=== PATIENT | female | born 1990 | race Caucasian/White ===

== ENCOUNTER 2017-12-02 15:00 | Emergency (ER) | payer OTHER ==
[~2017-12-02] VITALS: Ht 157.5 cm; Wt 86.2 kg
[2017-12-02 15:04] VITALS: Ht 157.5 cm; Wt 86.2 kg
[2017-12-02] MEDS ORDERED: IBUPROFEN 800 MG TAB PO STA (15:23)
--- NOTE | 2017-12-02 15:29 | EMERGENCY ROOM VISIT NOTE ---
ED Visit Note First contact with patient: 15:16 CHIEF COMPLAINT: Neck, bilateral shoulder, bilateral rib pain after fall from trampoline HISTORY OF PRESENT ILLNESS: This 27-year-old female patient presents to the emergency department, ambulatory, complaining of pain in the neck, bilateral shoulders, and bilateral lateral ribs after fall from a trampoline last night. The patient states approximately 10:00 last evening, she was jumping on a trampoline. She attempted to do a slip, when the [place] popped and she fell through. She states she fell with her feet down, and caught herself with her arms over the metal bar. She reports bilateral lateral rib pain which is causing some difficulty breathing, neck pain in the cervical spine which is causing difficulty with turning her neck, as well as bilateral shoulder pain radiating into the neck. The patient is having difficulty lifting objects due to the pain in her shoulder and neck. She has been using ice and Tylenol without relief of her symptoms. She has not taken any anti-inflammatories. She denies any numbness or tingling or weakness. She did not hit her head. She states she is having difficulty with lifting the arms. The patient works in [employer] at the [employer], and is concerned she may not be able to work tomorrow. She denies any previous injury in any of the areas. The patient rates the pain as sharp and 9/10. The patient denies chest pain or shortness of breath. There was no loss of consciousness. The patient denies headache, blurred vision, abdominal pain, nausea, or vomiting. The patient denies change in personality. REVIEW OF SYSTEMS: A 10 system review of systems was completed with positives and pertinent negatives listed in the HPI. ALLERGIES: None MEDICATIONS: None PMH: None SOCIAL HISTORY: The patient lives locally with family. She denies drug use. She admits to occasional alcohol and smokes one half pack of cigarettes per day. PHYSICAL EXAM: VITALS: Vitals are noted on the nurse's note and reviewed by myself. Vital signs stable. The patient was placed in a cervical collar by nursing staff. GENERAL: This is a 27-year-old white female, in no acute distress, nondiaphoretic, well-developed well-nourished. SKIN: Capillary reflex less than 2 seconds. HEENT: Normocephalic. PERRLA. EOMI. Nares patent. Mucous membranes moist. Neck is supple without nuchal rigidity. Cervical spine is tender to palpation. The patient does have tenderness of the paraspinal muscles bilaterally. There is no lymphadenopathy. MUSCULOSKELETAL: The patient has limited range of motion of the bilateral arms. Strength 5/5 of the bilateral upper extremities. The patient has tenderness with any attempts to move of the neck. There is tenderness of the bilateral shoulders on palpation. There is also tenderness of the bilateral lateral ribs. There is no difficulty breathing, but the patient does report increased pain with palpation and deep breathing. NEURO: Patient was alert and oriented to person place and time. Normal sensation to light and sharp touch. No focal neurologic deficits. RADIOLOGY: C-SPINE CROSS TABLE 1 VIEW HISTORY: Pain. Trauma. C COLLAR CLEARANCE COMPARISON: None. Findings: Negative lateral projection of the cervical spine. Vertebral body stature is unremarkable. Prevertebral soft tissues are unremarkable. Posterior limits. Be intact. IMPRESSION: Negative lateral projection the cervical spine. The above report was generated using voice recognition software. It may contain grammatical, syntax or spelling errors. Electronically signed by: Tremayne Jerez M.D. 12/02/2017 3:51 PM Dictated Date/Time: 12/02/2017 3:51 PM [~ rep ct add3]] CERVICAL SPINE 2 OR 3 VIEWS HISTORY: Trauma. Pain. neck pain s/p fall COMPARISON: None. FINDINGS: The cervical spine is visualized from C1 through the superior endplate of T1. There is no fracture. No subluxation. Disc spaces are preserved. Prevertebral soft tissues and the atlantodens interval are intact. IMPRESSION: No fracture or subluxation within the cervical spine. The above report was generated using voice recognition software. It may contain grammatical, syntax or spelling errors. Electronically signed by: Tremayne Jerez M.D. 12/02/2017 4:08 PM Dictated Date/Time: 12/02/2017 4:08 PM RIBS BILATERAL WITH PA CHEST HISTORY: 27 years-old Female teresa lateral rib pain s/p fall acute bilateral rib pain status post fall COMPARISON: None available TECHNIQUE: PA view of the chest with 2 views of the bilateral ribs FINDINGS: Cardiomediastinal and hilar silhouettes are within normal limits. There is no pneumothorax, pleural effusion, focal airspace consolidation or overt pulmonary edema. Bones of the chest appear grossly intact. No acute displaced rib fracture identified. IMPRESSION: 1. No acute process of the chest. 2. No acute rib fracture identified. The above report was generated using voice recognition software. It may contain grammatical, syntax or spelling errors. Electronically signed by: Rashel Fragoso M.D. 12/02/2017 4:19 PM Dictated Date/Time: 12/02/2017 4:17 PM R SHOULDER MIN 2 VIEWS ROUTINE CLINICAL HISTORY: right shoulder pain s/p fall trauma. Pain. COMPARISON: None. DISCUSSION: The bones and joint spaces appear intact. There is no evidence of fracture, dislocation or bony disease. There is no evidence for soft tissue swelling. IMPRESSION: Negative study. The above report was generated using voice recognition software. It may contain grammatical, syntax or spelling errors. Electronically signed by: Tremayne Jerez M.D. 12/02/2017 4:06 PM Dictated Date/Time: 12/02/2017 4:06 PM L SHOULDER MIN 2 VIEWS ROUTINE CLINICAL HISTORY: left shoulder pain s/p fall trauma. Pain. COMPARISON: None. DISCUSSION: The bones and joint spaces appear intact. There is no evidence of fracture, dislocation or bony disease. There is no evidence for soft tissue swelling. IMPRESSION: Negative study. The above report was generated using voice recognition software. It may contain grammatical, syntax or spelling errors. Electronically signed by: Tremayne Jerez M.D. 12/02/2017 4:08 PM Dictated Date/Time: 12/02/2017 4:08 PM EMERGENCY DEPARTMENT COURSE: I examined the patient. She is given 800 mg ibuprofen. X-rays performed and reviewed by myself and radiologist as above. I did receive a phone call after the lateral C-spine film, and the radiologist had reviewed this as no acute fracture. I did give the okay for the school bus technician to remove the cervical collar. The patient was reassessed and is feeling much better. I discussed the findings of x-rays with the patient at bedside. I recommended anti-inflammatories and muscle relaxers. The patient requested a note for work, and was given this. Discharge instructions reviewed, the patient was discharged home in good condition. I attest that I have personally reviewed the patient's current medication list. Patient was found to have normal blood pressure on screening and does not require follow-up. Etiologies such as soft tissue injury, fracture, dislocation, neurovascular compromise, compartment syndrome, as well as others were entertained. DIAGNOSIS: Neck pain, bilateral contusion of ribs, bilateral shoulder pain, fall involving trampoline The chart was completed utilizing [employer] voice recognition software. Grammatical errors, random word insertions, pronoun errors, and incomplete sentences are an occasional consequence of this system due to software limitations, ambient noise, and hardware issues. Any formal questions or concerns about the content, text, or information contained within the body of this dictation should be directly addressed to the provider for clarification. Current/Historical Medications Scheduled PRN Cyclobenzaprine Hcl (Flexeril), 5-10 MG PO TID PRN for Muscle Spasms Vital Signs Date Time Temp Pulse Resp B/P (MAP) Pulse Ox O2 Delivery O2 Flow Rate FiO2 12/02/17 16:47 36.8 81 20 113/77 96 12/02/17 16:30 81 20 113/77 96 Room Air 12/02/17 15:04 36.8 82 20 116/78 96 Room Air Medications Administered Medications (Trade) Dose Ordered Sig/Char Route Start Time Stop Time Status Last Admin Dose Admin Ibuprofen (Motrin Tab) 800 mg NOW STAT PO 12/02/17 15:23 12/02/17 15:26 DC 12/02/17 15:31 800 MG Departure Information Impression Primary Impression: Neck pain Additional Impressions: Bilateral contusion of ribs Bilateral shoulder pain Fall involving trampoline as cause of accidental injury Dispostion Home / Self-Care Condition GOOD Prescriptions Cyclobenzaprine Hcl (FLEXERIL) 5 Mg Tab 5-10 MG PO TID Y for Muscle Spasms, #15 TAB PRN Prov: Tiffanie Olivera PA-C 12/02/17 Referrals No Doctor, Assigned (PCP) Patient Instructions ED Contusion Rib, ED Contusion Shoulder, ED Neck Back Pain General, My [facility] Additional Instructions You have been treated in the Emergency Department for Rib, neck, and shoulder pain. All x-rays were negative for acute fracture. I suspect contusions and muscle spasms related to the fall. You have been prescribed Flexeril (cyclobenzaprine) 1-2 tabs orally, three times per day. Do NOT exceed 30 mg (6 tabs) per day. Take your first dose at bedtime as it can make you drowsy. Always take all medications as prescribed. For pain control, you can use the following [id number] medicines (if >12 yo): Ibuprofen(Motrin, Advil) may be used for fever or pain. Use 600mg every six hours as needed. Take with food. Avoid using more than 2400mg in a 24 hour period. Do not use 2400mg per day for more than three consecutive days without physician direction. Prolonged inappropriate use can lead to stomach upset or ulcers. (AND/OR) Acetaminophen(Tylenol) may be used for fever or pain. Use 1000mg every six hours as needed. Avoid using more than 3000mg in a 24 hour period. If this is an acute injury, ice can be applied to the area of pain for the first 3 days to help decrease pain and inflammation. After the first 3 days, a heating pad can be used over the area for continued soothing relief. You should schedule a follow-up appointment in 2-3 days with your Primary Care Provider for further evaluation and treatment of your injuries. Hugging a pillow while coughing or sneezing can help to reduce your pain. Be sure to continue taking occasional deep breaths to help expand your lungs to reduce the risk of developing pneumonia. Return to the Emergency Department if your current symptoms worsen despite treatment course outlined above, or if you develop any of the following symptoms : intractable pain despite aforementioned treatment course, loss of control of your bowel or bladder, numbness or tingling in your groin, or development of a fever. Problem Qualifiers Additional Impressions: Bilateral shoulder pain Chronicity: acute Qualified Codes: M25.511 - Pain in right shoulder; M25.512 - Pain in left shoulder
--- NOTE | 2017-12-02 15:53 | DIAGNOSTIC IMAGING REPORT ---
C-SPINE CROSS TABLE 1 VIEW HISTORY: Pain. Trauma. C COLLAR CLEARANCE COMPARISON: None. Findings: Negative lateral projection of the cervical spine. Vertebral body stature is unremarkable. Prevertebral soft tissues are unremarkable. Posterior limits. Be intact. IMPRESSION: Negative lateral projection the cervical spine. The above report was generated using voice recognition software. It may contain grammatical, syntax or spelling errors. Electronically signed by: Tremayne Jerez M.D. 12/02/2017 3:51 PM Dictated Date/Time: 12/02/2017 3:51 PM
--- NOTE | 2017-12-02 16:07 | DIAGNOSTIC IMAGING REPORT ---
R SHOULDER MIN 2 VIEWS ROUTINE CLINICAL HISTORY: right shoulder pain s/p fall trauma. Pain. COMPARISON: None. DISCUSSION: The bones and joint spaces appear intact. There is no evidence of fracture, dislocation or bony disease. There is no evidence for soft tissue swelling. IMPRESSION: Negative study. The above report was generated using voice recognition software. It may contain grammatical, syntax or spelling errors. Electronically signed by: Tremayne Jerez M.D. 12/02/2017 4:06 PM Dictated Date/Time: 12/02/2017 4:06 PM
--- NOTE | 2017-12-02 16:09 | DIAGNOSTIC IMAGING REPORT ---
L SHOULDER MIN 2 VIEWS ROUTINE CLINICAL HISTORY: left shoulder pain s/p fall trauma. Pain. COMPARISON: None. DISCUSSION: The bones and joint spaces appear intact. There is no evidence of fracture, dislocation or bony disease. There is no evidence for soft tissue swelling. IMPRESSION: Negative study. The above report was generated using voice recognition software. It may contain grammatical, syntax or spelling errors. Electronically signed by: Tremayne Jerez M.D. 12/02/2017 4:08 PM Dictated Date/Time: 12/02/2017 4:08 PM
--- NOTE | 2017-12-02 16:10 | DIAGNOSTIC IMAGING REPORT ---
CERVICAL SPINE 2 OR 3 VIEWS HISTORY: Trauma. Pain. neck pain s/p fall COMPARISON: None. FINDINGS: The cervical spine is visualized from C1 through the superior endplate of T1. There is no fracture. No subluxation. Disc spaces are preserved. Prevertebral soft tissues and the atlantodens interval are intact. IMPRESSION: No fracture or subluxation within the cervical spine. The above report was generated using voice recognition software. It may contain grammatical, syntax or spelling errors. Electronically signed by: Tremayne Jerez M.D. 12/02/2017 4:08 PM Dictated Date/Time: 12/02/2017 4:08 PM
--- NOTE | 2017-12-02 16:20 | DIAGNOSTIC IMAGING REPORT ---
RIBS BILATERAL WITH PA CHEST HISTORY: 27 years-old Female teresa lateral rib pain s/p fall acute bilateral rib pain status post fall COMPARISON: None available TECHNIQUE: PA view of the chest with 2 views of the bilateral ribs FINDINGS: Cardiomediastinal and hilar silhouettes are within normal limits. There is no pneumothorax, pleural effusion, focal airspace consolidation or overt pulmonary edema. Bones of the chest appear grossly intact. No acute displaced rib fracture identified. IMPRESSION: 1. No acute process of the chest. 2. No acute rib fracture identified. The above report was generated using voice recognition software. It may contain grammatical, syntax or spelling errors. Electronically signed by: Rashel Fragoso M.D. 12/02/2017 4:19 PM Dictated Date/Time: 12/02/2017 4:17 PM
[2017-12-02] MEDS ORDERED: CYCL5TAB PO (16:29)
[2017-12-02 16:47] VITALS: BP 113/77; PULSE 81; TEMP 36.8; O2SAT 96
== END 2017-12-02 16:48 | disposition home or self-care (01) ==
LOC: C.EDB 15:01 → C.EDD 16:48
DX: M54.2 Cervicalgia (principal); S20.211A Contusion of right front wall of thorax, initial encounter; S20.212A Contusion of left front wall of thorax, initial encounter; M25.511 Pain in right shoulder; M25.512 Pain in left shoulder; W17.89XA Other fall from one level to another, initial encounter; Y93.44 Activity, trampolining; Y99.8 Other external cause status; F17.210 Nicotine dependence, cigarettes, uncomplicated

== ENCOUNTER → 2018-03-18 | Outpatient (CLI) | payer OTHER ==
[~2018-03-18] MED LIST: DIPH50CA56 PO; OXYC-737 PO; PRENTAB26 PO; PYRI100T4 PO
== END | disposition home or self-care (01) ==
LOC: C.LAB1850 15:22
PROVIDERS: ATTEND Obstetrics & Gynecology
DX: Z34.92 Encounter for supervision of normal pregnancy, unspecified, second trimester (principal)

== ENCOUNTER 2021-01-27 13:13 | Observation (INO) ==
[2021-01-27 14:03] LABS: Basophils # (auto) 0.02 K/uL (0-0.2); Basophils % (auto) 0.2 %; Hematocrit (blood only) 42.5 % (37-47); Immature Granulocytes # (auto) 0.01 K/uL (0.00-0.02); Immature Granulocytes % (auto) 0.1 %; Lymphocytes # (auto) 2.79 K/uL (1.2-3.4); Lymphocytes % (auto) 27.8 %; Mean Corpuscular Hemoglobin 30.6 pg (25-34); Mean Corpuscular Hgb Conc 32.9 g/dL (32-36); Mean Corpuscular Volume 92.8 fL (80-100); Monocytes # (auto) 0.75 K/uL (0.11-0.59); Monocytes % (auto) 7.5 %; Neutrophils # (auto) 6.45 K/uL (1.4-6.5); Neutrophils % (auto) 64.4 %; Platelet Count 207 K/uL (130-400); RDW Coefficient of Variation 13.4 % (11.5-14.5); RDW Standard Deviation 45.6 fL (36.4-46.3); Red Blood Count 4.58 M/uL (4.2-5.4); White Blood Count 10.02 K/uL (4.8-10.8)
[2021-01-27 14:21] LABS: Albumin Level 3.1 gm/dl (3.4-5.0); Calcium 8.7 mg/dl (8.5-10.1); Creatinine Clr Calc Pharmacy 120.7 ml/min; Est GFR (African American) 123.7 ml/min; Est GFR (Non-African American) 106.8 ml/min; Potassium 4.2 mmol/L (3.5-5.1)
[2021-01-27 14:24] LABS: Albumin Globulin Ratio 0.8 (0.9-2); Bilirubin,Total 0.3 mg/dl (0.2-1); Globulin 3.9 gm/dl (2.5-4.0)
--- NOTE | 2021-01-27 14:56 | Ultrasound Report ---
US breast RT limited CLINICAL HISTORY: right breast redness/swelling, recurrent abscesses COMPARISON STUDY: No previous studies for comparison. FINDINGS: Right breast ultrasonography was performed. There is a complex avascular fluid collection s een beneath the nipple measuring 29 x 29 x 36 mm. There is overlying periareolar erythema. The findin gs are consistent with an abscess. IMPRESSION: Mildly complex subareolar fluid collection measuring 3.6 x 2.9 x 2.9 cm. The findings ar e consistent with an abscess. ACT 112: Negative or not required by law. Electronically signed by: Britton Gómez M.D. 01/27/2021 2:55 PM
[2021-01-27] MEDS ORDERED: cefTRIAXone SODIUM 2,000 MG/70 ML BAG IV STA (15:11)
[2021-01-27] MEDS ORDERED: ONDANSETRON INJ 2 MG/ML 2 ML VIAL IV STA (15:17)
[2021-01-27] MEDS ORDERED: MoRPHine SULFATE 10 MG/ML CARP/VIAL IV STA (15:17)
--- NOTE | 2021-01-27 15:17 | Emergency Department Note ---
History of Present Illness General Chief complaint: Breast Pain/Problems Stated complaint: RIGHT BREAST PAIN/RED NOT SWELLED LUMP Time Seen by Provider: 01/27/21 13:30 Source: patient Mode of arrival: ambulatory Limitations: no limitations History of Present Illness Maximum Pain Intensity: 10 This patient is a 30-year-old female who presents to the emergency department for evaluation of right breast pain. She states she has had issues on and off with breast abscesses for the past 2 years. [place] [facility] [place] with Dr. Richardson at [facility]. She has had worsening redness/swelling of the right breast over the past 4 to 5 days. She did start taking dicloxacillin but has not noticed any improvement with this. She denies any fever/chills, nausea or other systemic symptoms. Home Medications Medication Instructions Recorded Confirmed Type divalproex [Depakote] 1,000 mg PO HS 01/27/21 01/27/21 History folic acid 400 mcg PO QAM 01/27/21 01/27/21 History gabapentin [Neurontin] 300 mg PO TID 01/27/21 01/27/21 History phentermine 30 mg PO QAM 01/27/21 01/27/21 History venlafaxine [Effexor XR] 150 mg PO HS 01/27/21 01/27/21 History oxycodone-acetaminophen [Percocet] 1 tab PO Q6H PRN #14 tab 01/28/21 Rx sulfamethoxazole-trimethoprim 1 tab PO DAILY 14 Days #14 tab 01/28/21 Rx [Bactrim DS] Allergies Allergy/AdvReac Type Severity Reaction Status Date / Time No Known Allergies Allergy Unverified 01/27/21 14:13 Past Med/Surg History Medical History No significant past medical history Social History Smoking Status: Current every day smoker Do You Dip or Chew Tobacco: No; Tobacco Cessation Education Requested by Patient: No Hx Alcohol Use: Yes Alcohol type: beer Hx Substance Use: No Preferred Language: Serbian Communication Ability: Effective Dental Associate Required: No Beliefs That Will Affect Care: None Current Living Situation: Significant Other Other Information That Helps Us Care for You: No Feels Safe at Home: Yes Safety Concerns: Feels Safe At This Time Assistive Devices: None Review of Systems A total of 10 systems reviewed and were otherwise negative Physical Exam Vital Signs Vital Signs - 24 hr 01/27/21 13:15 01/27/21 15:00 Temperature 36.6 C Temperature Source Temporal Artery Scan Pulse Rate 92 H Pulse Rate [Left Finger] 68 Respiratory Rate 18 20 Respiratory Effort / Characteristics Non-Labored Respiratory Depth Normal Blood Pressure 110/74 Blood Pressure [Left Arm] 123/82 Blood Pressure Mean 86 Blood Pressure Mean [Left Arm] 95 Blood Pressure Position [Left Arm] Lying Pulse Oximetry 97 97 Oxygen Delivery Method Room Air Room Air Sepsis Recent Fever Within 48 Hours No Sepsis New/Unexplained Change in Mental Status N/A Sepsis Action Taken by Nursing No Action Required VITALS: Vitals are noted on the nurse's note and reviewed by myself. Vital signs stable. GENERAL: This is a 30-year-old female, in no acute distress, well-developed well-nourished. EYES: Pupils equal round and reactive to light and accommodation. MOUTH: Mucous membranes moist. NECK: Supple without nuchal rigidity. HEART: Regular rate and rhythm without murmurs gallops or rubs. LUNGS: Clear to auscultation bilaterally without wheezes, rales or rhonchi. BREAST: There is erythema surrounding the right areola with underlying induration and fluctuance. NEURO: Patient was alert and oriented to person place and time. Course Consultations Consultation #1: Dr. Churchill - general surgery Administered Medications Discontinued Medications Bacitracin (Bacitracin Oint 15 Gm Tube) Confirm Administered Dose 45 appln .ROUTE .STK-MED ONE Stop: 01/27/21 17:07 Last Admin: 01/27/21 17:56 Dose: 25 appln Documented by: [id number] Bupivacaine HCl (Bupivacaine 0.5 % 5 Mg/1 Ml Mpf 30ml Vial) Confirm Administered Dose 30 ml .ROUTE .STK-MED ONE Stop: 01/27/21 17:07 Last Admin: 01/27/21 17:56 Dose: 12 ml Documented by: [id number] Divalproex Sodium (Divalproex Delay Release 500 Mg Tab) 1,000 mg PO HS PENDING SALE TO [facility] Stop: 02/26/21 20:59 Last Admin: 01/27/21 21:05 Dose: 1,000 mg Documented by: [id number] Folic Acid (Folic Acid 400 Mcg Tab) 400 mcg PO QAM LATESHA Stop: 02/27/21 08:59 Last Admin: 01/28/21 08:33 Dose: 400 mcg Documented by: [id number] Gabapentin (Gabapentin 300 Mg Cap) 300 mg PO TID LATESHA Stop: 02/26/21 20:59 Last Admin: 01/28/21 08:33 Dose: 300 mg Documented by: [id number] Admin: 01/27/21 21:05 Dose: 300 mg Documented by: [id number] Hydromorphone HCl (Hydromorphone Inj 1 Mg/Ml Syringe) 1 mg IV Q3H PRN PRN Reason: Pain Stop: 02/10/21 19:25 Last Admin: 01/28/21 08:32 Dose: 1 mg Documented by: [id number] Admin: 01/28/21 01:35 Dose: 1 mg Documented by: [id number] Admin: 01/27/21 19:40 Dose: 1 mg Documented by: [id number] Ceftriaxone Sodium (Rocephin) 2,000 mg in 70 mls @ 140 mls/hr IV NOW STA Stop: 01/27/21 15:40 Last Infusion: 01/27/21 16:21 Dose: 0 mls/hr Documented by: [id number] Admin: 01/27/21 15:45 Dose: 140 mls/hr Documented by: [id number] Lactated Ringer's (Lr) 1,000 mls @ 80 mls/hr IV .[id number] LATESHA Stop: 02/26/21 19:25 Last Infusion: 01/28/21 09:32 Dose: 80 mls/hr Documented by: [id number] Infusion: 01/28/21 08:32 Dose: 0 mls/hr Documented by: [id number] Infusion: 01/27/21 21:10 Dose: 80 mls/hr Documented by: [id number] Infusion: 01/27/21 20:24 Dose: 0 mls/hr Documented by: [id number] Admin: 01/27/21 19:40 Dose: 80 mls/hr Documented by: [id number] Ampicillin Sodium/Sulbactam Sodium 3,000 mg/ Sodium Chloride 108 mls @ 200 mls /hr IV Q6H LATESHA; Protocol Stop: 02/06/21 19:59 Last Infusion: 01/28/21 09:05 Dose: 0 mls/hr Documented by: [id number] Admin: 01/28/21 08:32 Dose: 200 mls/hr Documented by: [id number] Infusion: 01/28/21 02:04 Dose: 0 mls/hr Documented by: [id number] Admin: 01/28/21 01:28 Dose: 200 mls/hr Documented by: [id number] Infusion: 01/27/21 21:02 Dose: 0 mls/hr Documented by: [id number] Admin: 01/27/21 20:24 Dose: 200 mls/hr Documented by: [id number] Lidocaine HCl (Lidocaine Hcl 1% 20 Ml Vial) Confirm Administered Dose 20 ml .ROUTE .STK-MED ONE Stop: 01/27/21 17:07 Last Admin: 01/27/21 17:57 Dose: 12 ml Documented by: [id number] Menthol (Cough Drop (Sugar Free) Gricelda 24 Gricelda/1 Box) Confirm Administered Dose 24 gricelda BUCCAL .STK-MED ONE Stop: 01/28/21 01:33 Last Admin: 01/28/21 01:34 Dose: 24 gricelda Documented by: [id number] Morphine Sulfate (Morphine Sulfate 10 Mg/Ml Carp/Vial) 6 mg IV NOW STA Stop: 01/27/21 15:18 Last Admin: 01/27/21 16:02 Dose: 6 mg Documented by: [id number] Ondansetron HCl (Ondansetron Inj 2 Mg/Ml 2 Ml Vial) 4 mg IV NOW STA Stop: 01/27/21 15:18 Last Admin: 01/27/21 16:02 Dose: 4 mg Documented by: [id number] Oxycodone/Acetaminophen (Oxycodone/Acetaminophen 5mg/325mg Tab) 1 tab PO Q4H PRN PRN Reason: Pain Stop: 02/10/21 19:25 Last Admin: 01/28/21 05:33 Dose: 1 tab Documented by: [id number] Admin: 01/28/21 01:28 Dose: 1 tab Documented by: [id number] Admin: 01/27/21 21:08 Dose: 1 tab Documented by: [id number] Venlafaxine HCl (Venlafaxine Hcl Xr 150 Mg Capxr) 150 mg PO HS LATESHA Stop: 02/26/21 20:59 Last Admin: 01/27/21 21:05 Dose: 150 mg Documented by: [id number] Medical Decision Making Differential Diagnosis Differential diagnosis includes abscess, cellulitis, mass/malignancy, among others. Home Medications Current Medication List: was personally reviewed by me Laboratory Data Attestation: I reviewed the patient's lab results. Result diagrams: 01/28/21 05:18 01/27/21 13:55 Lab Results 01/27/21 01/27/21 01/27/21 Range/Units 13:55 13:55 15:38 WBC 10.02 (4.8-10.8) K/uL RBC 4.58 (4.2-5.4) M/uL Hgb 14.0 (12.0-16.0) g/dL Hct 42.5 (37-47) % MCV 92.8 (80-100) fL MCH 30.6 (25-34) pg MCHC 32.9 (32-36) g/dL RDW Std Deviation 45.6 (36.4-46.3) fL RDW Coeff of Edith 13.4 (11.5-14.5) % Plt Count 207 (130-400) K/uL MPV 11.0 H (7.4-10.4) fL Immature Gran % (Auto) 0.1 % Neut % (Auto) 64.4 % Lymph % (Auto) 27.8 % [place] % (Auto) 7.5 % Eos % (Auto) 0.0 % Baso % (Auto) 0.2 % Neut # (Auto) 6.45 (1.4-6.5) K/uL Lymph # (Auto) 2.79 (1.2-3.4) K/uL [place] # (Auto) 0.75 H (0.11-0.59) K/uL Eos # (Auto) 0.00 (0-0.5) K/uL Baso # (Auto) 0.02 (0-0.2) K/uL Immature Gran # (Auto) 0.01 (0.00-0.02) K/uL Sodium 140 (136-145) mmol/L Potassium 4.2 (3.5-5.1) mmol/L Chloride 110 H (98-107) mmol/L Carbon Dioxide 27 (21-32) mmol/L Anion Gap 3.0 (3-11) BUN 8 (7-18) mg/dl Creatinine 0.76 (0.6-1.2) mg/dl Est Cr Clr Drug Dosing 120.7 ml/min Est GFR ( Amer) 123.7 ml/min Est GFR (Non-Af Amer) 106.8 ml/min BUN/Creatinine Ratio 11.0 (10-20) Glucose 81 (70-99) mg/dl Calcium 8.7 (8.5-10.1) mg/dl Total Bilirubin 0.3 (0.2-1) mg/dl AST 8 L (15-37) U/L ALT 15 (12-78) U/L Alkaline Phosphatase 90 (45-117) U/L Total Protein 7.0 (6.4-8.2) gm/dl Albumin 3.1 L (3.4-5.0) gm/dl Globulin 3.9 (2.5-4.0) gm/dl Albumin/Globulin Ratio 0.8 L (0.9-2) COVID-19 Eval Order Covid19 at [facility] SARS-CoV-2 (PCR) (Negative) 01/27/21 Range/Units 15:38 WBC (4.8-10.8) K/uL RBC (4.2-5.4) M/uL Hgb (12.0-16.0) g/dL Hct (37-47) % MCV (80-100) fL MCH (25-34) pg MCHC (32-36) g/dL RDW Std Deviation (36.4-46.3) fL RDW Coeff of Edith (11.5-14.5) % Plt Count (130-400) K/uL MPV (7.4-10.4) fL Immature Gran % (Auto) % Neut % (Auto) % Lymph % (Auto) % [place] % (Auto) % Eos % (Auto) % Baso % (Auto) % Neut # (Auto) (1.4-6.5) K/uL Lymph # (Auto) (1.2-3.4) K/uL [place] # (Auto) (0.11-0.59) K/uL Eos # (Auto) (0-0.5) K/uL Baso # (Auto) (0-0.2) K/uL Immature Gran # (Auto) (0.00-0.02) K/uL Sodium (136-145) mmol/L Potassium (3.5-5.1) mmol/L Chloride (98-107) mmol/L Carbon Dioxide (21-32) mmol/L Anion Gap (3-11) BUN (7-18) mg/dl Creatinine (0.6-1.2) mg/dl Est Cr Clr Drug Dosing ml/min Est GFR ( Amer) ml/min Est GFR (Non-Af Amer) ml/min BUN/Creatinine Ratio (10-20) Glucose (70-99) mg/dl Calcium (8.5-10.1) mg/dl Total Bilirubin (0.2-1) mg/dl AST (15-37) U/L ALT (12-78) U/L Alkaline Phosphatase (45-117) U/L Total Protein (6.4-8.2) gm/dl Albumin (3.4-5.0) gm/dl Globulin (2.5-4.0) gm/dl Albumin/Globulin Ratio (0.9-2) COVID-19 Eval Order SARS-CoV-2 (PCR) NEGATIVE (Negative) Imaging Data Attestation: I personally reviewed and interpreted this imaging study as foll ows: Radiologist's Impression: Breast Ultrasound 01/27/21 13:44 US breast RT limited CLINICAL HISTORY: right breast redness/swelling, recurrent abscesses COMPARISON STUDY: No previous studies for comparison. FINDINGS: Right breast ultrasonography was performed. There is a complex avascular fluid collection seen beneath the nipple measuring 29 x 29 x 36 mm. There is overlying periareolar erythema. The findings are consistent with an abscess. IMPRESSION: Mildly complex subareolar fluid collection measuring 3.6 x 2.9 x 2.9 cm. The findings are consistent with an abscess. ACT 112: Negative or not required by law. Electronically signed by: Britton Gómez M.D. 01/27/2021 2:55 PM [facility] Narrative This patient is a 30-year-old female who presents to the emergency department for evaluation of recurrent breast abscess. Ultrasound was performed which did confirm a subareolar breast abscess. Labs showed no leukocytosis. General surgery was consulted and agreed to take the patient to the OR. Patient was given IV Rocephin. Impression & Plan Abscess of breast Discharge Plan Visit Data Chief Complaint: Breast Pain/Problems Stated Complaint: RIGHT BREAST PAIN/RED NOT SWELLED LUMP ED Provider: Joao Norwood ED Midlevel Provider: Pauline Nagy Discharge Problem: Abscess of breast Patient Disposition: Admitted As Inpatient Condition: Good Discharge Instructions Interventions: ED Discharge Assessment Last Done: 01/27/21 17:10
--- NOTE | 2021-01-27 16:07 | Surgery Consultation ---
Date of Consultation January 27, 2021 Assessment & Plan (1) Abscess of right breast: pt is a 30 year-old female who presents to ER with 5 days history right breast pain, IMP: right breast abscess Plan, I recommend to do I/D right breast abscess , D/W benefits, risks and alternatives of the surgery, the risks - infection, bleeding, recurrence, scar, pt understood, she agrees with surgery, i answered all questions, pre-op antibiotic, Present on Admission?: Yes History of Present Illness History of Present Illness History of Present Illness General Chief complaint: Breast Pain/Problems Stated complaint: RIGHT BREAST PAIN/RED NOT SWELLED LUMP Time Seen by Provider: 01/27/21 13:30 Source: patient Mode of arrival: ambulatory Limitations: no limitations History of Present Illness Maximum Pain Intensity: 10 This patient is a 30-year-old female who presents to the emergency department for evaluation of right breast pain. She states she has had issues on and off with breast abscesses for the past 2 years. She has seen a breast surgeon at [facility] [place] but is now scheduled with Dr. Richardson at [facility]. She has had worsening redness/swelling of the right breast over the past 4 to 5 days. She did start taking dicloxacillin but has not noticed any improvement with this. She denies any fever/chills, nausea or other systemic symptoms. I (briana Churchill MD ) got a call for consult right breast abscess, I reviewed pt's H/P, labs, U/S study with pt, Home Medications Medication Instructions Recorded Confirmed Type divalproex [Depakote] 1,000 mg PO HS 01/27/21 01/27/21 History folic acid 400 mcg PO QAM 01/27/21 01/27/21 History gabapentin [Neurontin] 300 mg PO TID 01/27/21 01/27/21 History phentermine 30 mg PO QAM 01/27/21 01/27/21 History venlafaxine [Effexor XR] 150 mg PO HS 01/27/21 01/27/21 History Allergies Allergy/AdvReac Type Severity Reaction Status Date / Time No Known Allergies Allergy Unverified 01/27/21 14:13 Past Med/Surg History Medical History (Updated 01/27/21 @ 15:26 by Pauline Nagy PA-C) No significant past medical history Social History Smoking Status: Current every day smoker Feels Safe at Home: Yes Review of Systems A total of 10 systems reviewed and were otherwise negative Allergies Allergy/AdvReac Type Severity Reaction Status Date / Time No Known Allergies Allergy Unverified 01/27/21 14:13 Home Medications Medication Instructions Recorded Confirmed Type divalproex [Depakote] 1,000 mg PO HS 01/27/21 01/27/21 History folic acid 400 mcg PO QAM 01/27/21 01/27/21 History gabapentin [Neurontin] 300 mg PO TID 01/27/21 01/27/21 History phentermine 30 mg PO QAM 01/27/21 01/27/21 History venlafaxine [Effexor XR] 150 mg PO HS 01/27/21 01/27/21 History Patient History Medical History (Updated 01/27/21 @ 16:07 by Briana Churchill MD) No significant past medical history Social History Smoking Status: Current every day smoker Feels Safe at Home: Yes Physical Exam Constitutional: WD/WN, vitals as above well developed and well nourished Eyes: PERRL, conjunctivae normal, anicteric sclerae ENMT: external ear and nose normal, oropharynx normal Neck: trachea midline, no thyromegaly Respiratory: normal respiratory effort, lungs clear to auscultation normal respiratory effort Cardiovascular: RRR, no murmur, no edema Rate/Rhythm: regular rate and regular rhythm Chest (Breasts): Additional Comments: tenderness, redness at right breast at 12 O'clock, 2cm form nipple Gastrointestinal (Abdomen): normal bowel sounds, soft, nontender, no hepatosplenomegaly Musculoskeletal: no cyanosis or clubbing, extremities motor strength 5/5 Skin: no rashes, warm and dry Neurologic: awake Psychiatric: Orientation: alert and oriented x 3 Results & Data ([facility] [place]) Vital Signs (Past 12 Hours) Vital Signs Temp Pulse Pulse Resp BP BP Pulse Ox 01/27/21 15:00 68 20 123/82 97 01/27/21 13:15 36.6 C 92 H 18 110/74 97 Laboratory Results Abnormal lab results 01/27/21 01/27/21 Range/Units 13:55 13:55 MPV 11.0 H (7.4-10.4) fL Dickinson # (Auto) 0.75 H (0.11-0.59) K/uL Chloride 110 H (98-107) mmol/L AST 8 L (15-37) U/L Albumin 3.1 L (3.4-5.0) gm/dl Albumin/Globulin Ratio 0.8 L (0.9-2) Diagnostic Findings US breast RT limited CLINICAL HISTORY: right breast redness/swelling, recurrent abscesses COMPARISON STUDY: No previous studies for comparison. FINDINGS: Right breast ultrasonography was performed. There is a complex avascular fluid collection seen beneath the nipple measuring 29 x 29 x 36 mm. There is overlying periareolar erythema. The findings are consistent with an abscess. IMPRESSION: Mildly complex subareolar fluid collection measuring 3.6 x 2.9 x 2.9 cm. The findings are consistent with an abscess.
--- NOTE | 2021-01-27 16:10 | History & Physical Bridge Note ---
Date of Service January 27, 2021 History & Physical Bridge Note I have examined the patient, reviewed the History & Physical and in the interval since the performance of the History & Physical I have noted the following changes of clinical significance: no changes noted
[2021-01-27] MEDS ORDERED: SUCCINYLCHOLINE CHLORIDE 20 MG/ML 10 ML VIAL IV ONE (17:03)
[2021-01-27] MEDS ORDERED: fentaNYL citrate 100 MCG/2 ML VIAL ONE (17:04)
[2021-01-27] MEDS ORDERED: BACITRACIN OINT 15 GM TUBE ONE (17:06)
[2021-01-27] MEDS ORDERED: LIDOCAINE 1% LOCAL 20 ML VIAL ONE (17:06)
[2021-01-27] MEDS ORDERED: BUPIVACAINE 0.5 % 5 MG/1 ML MPF 30ML VIAL ONE (17:06)
[2021-01-27] MEDS ORDERED: LIDOCAINE 2% 2 ML VIAL/AMP(20MG/ML) INFIL ONE (17:08)
[2021-01-27] MEDS ORDERED: PROPOFOL IV EMULSION 10 MG/ML 20 ML VIAL IV ONE (17:08)
--- NOTE | 2021-01-27 17:19 | Anesthesiology Consultation ---
Date of Service January 27, 2021 Assessment & Plan (1) Encounter for pre-operative examination: Chart Review Chart Review: Acceptable Risk for Surgery Consults Requested none ASA [id number] Proposed Anesthesia Anesthesia Type: General Risk / Benefits Reviewed With: PT / POA / Parent / Guardian, Accepts Plan and Informed Consent Obtained History Surgery Operation Date: 01/27/21 17:15 Proposed Procedures p Neoprobe Breast - Briana Churchill MD Height/Weight Height: 5 ft 3 in Weight: 94.9 kg Allergies Allergy/AdvReac Type Severity Reaction Status Date / Time No Known Allergies Allergy Unverified 01/27/21 14:13 Medications Home Medications Medication Instructions Recorded Confirmed Last Taken divalproex [Depakote] 1,000 mg PO HS 01/27/21 01/27/21 01/26/21 folic acid 400 mcg PO QAM 01/27/21 01/27/21 01/27/21 gabapentin [Neurontin] 300 mg PO TID 01/27/21 01/27/21 01/27/21 phentermine 30 mg PO QAM 01/27/21 01/27/21 01/27/21 venlafaxine [Effexor XR] 150 mg PO HS 01/27/21 01/27/21 01/26/21 NPO Date Last Intake of Fluids: 01/27/21 Time Last Intake of Fluids: 11:00 Date Last Intake of Solids: 01/27/21 Time Last Intake of Solids: 11:00 Last Intake of Solids Comment: [place] Past Medical History Medical History No significant past medical history Exercise / Class Metabolic Activity II 4-5 Yardwork/Stairs/Walk up hill Past Anesthesia History No Hx of Anesthesia Complications and No Family Hx of Anesthesia Complications History of PONV No Hx of PONV and No Hx of Motion Sickness Social History Smoking Status: Current every day smoker Physical Exam Vital Signs Last Vital Signs Temp 97.9 F 01/27/21 13:15 Pulse 68 01/27/21 15:00 Resp 20 01/27/21 15:00 BP 123/82 01/27/21 15:00 Pulse Ox 97 01/27/21 15:00 ENMT Mouth: no dentition abnormality Thyromental Distance: > or= 3.5 Finger Breadths Mallampati Class: II Neck normal visual inspection Respiratory normal respiratory effort Auscultation: lungs clear to auscultation bilaterally Cardiovascular Rate/Rhythm: regular rate and regular rhythm Testing Laboratory Results 01/27/21 13:55 01/27/21 13:55
[2021-01-27] MEDS ORDERED: fentaNYL citrate 100 MCG/2 ML VIAL IV PRN (17:23)
[2021-01-27] MEDS ORDERED: ATROPINE SULFATE 0.1 MG/ML 10ML SYR IV PRN (17:23)
[2021-01-27] MEDS ORDERED: ePHEDrine sulfate 50 MG/ML AMP IV PRN (17:23)
[2021-01-27] MEDS ORDERED: ONDANSETRON INJ 2 MG/ML 2 ML VIAL IV PRN ×2 (17:23→18:05)
--- NOTE | 2021-01-27 18:00 | Post Operative Brief Note ---
Immediate Post Op Note v1 Date of Surgery January 27, 2021 Pre & Post Diagnosis Operation Date: 01/27/21 17:15 pre-op diagnosis: right breast abscess post-op diagnosis: right breast abscess I identified the patient and participated in the time-out.: Yes Procedure Operation Date: 01/27/21 17:15 incision and drainage right breast abscess Surgeon Briana Churchill MD [employer] surgical scrub tech Estimated Blood Loss 3 Findings Consistent with Post-Op Diagnosis right breast abscess, wound culture sent Fluids 800ml Specimens none Drains Other (packing the wound) Anesthesia Type General Complications none Disposition Accompanied Patient To Recovery: Yes Disposition: Recovery Room Overlapping Procedure I was immediately available: during the entire case.
[2021-01-27] MEDS ORDERED: ROCURONIUM BROMIDE 10 MG/ML 5 ML VIAL IV ONE (18:11)
--- NOTE | 2021-01-27 18:49 | Operative Report (OR) ---
DATE OF SURGERY: 01/27/2021. PREOPERATIVE DIAGNOSIS: Right breast abscess. POSTOPERATIVE DIAGNOSIS: Right breast abscess. PROCEDURE: Incision and drainage, right breast abscess. SURGEON: Briana Churchill MD. ANESTHESIA: General. ESTIMATED BLOOD LOSS: About 3 mL. INTRAVENOUS FLUIDS: 800 mL. FINDINGS: Right breast abscess, wound culture sent. COMPLICATIONS: None. INDICATIONS OF THE PROCEDURE: This is a 30-year-old female who presented with 4-day history of right breast pain and the patient had ultrasound diagnosis of right breast abscess. I recommend to do the incision and drainage of the right breast abscess. I did talk to the patient about the benefit, the risk, alternate procedure. I indicated the risks may include, but not limited to, such as bleeding, infection, sepsis, scar recurrence, deformation, patient understands and she signed informed consent and I answered all questions. DETAILS OF PROCEDURE: After we identified the patient and verified the procedure, we brought the pat ient to the OR, put the patient on the supine position. The patient received SCD on bilateral legs t o prevent DVT. Also, patient received 2 grams cefoxitin IV for prophylactic antibiotic. Patient rec eived general anesthesia without difficulty. The right breast was prepped and draped in routine ster ile fashion. After timeout, I made about 2 cm incision on the right breast around 12 o'clock on the abscess there. The pus came out immediately and then the abscess connected behind the nipple. Once we completely removed all of the pus, we used normal saline to flush the abscess cavity. Hemostasis obtained. Then, I used a half-inch Kerlix for packing the wound. Then, we put the dressing on. The patient tolerated the procedure well. Also, we sent a wound culture. The patient tolerated the pro cedure well. Then, we also injected the local anesthesia by using 1% lidocaine mixed with 0.5% Heather ine around the incision. After we finished the procedure. Then, we put the dressing on. The patien t tolerated the procedure well. All instrument, needle, sponge counts were correct x2 at the end of the case. Patient transferred to recovery room in stable condition. After procedure, I did talk to the patient about the OR finding and the procedure we did, she understands. Job ID: [id number]
[2021-01-27] MEDS ORDERED: LACTATED RINGER'S 1,000 ML IV SCH (19:26)
[2021-01-27] MEDS: HYDROmorphone INJ 1 MG/ML SYRINGE IV PRN (19:40)
[2021-01-27] MEDS: AMPICILLIN/SULBACTAM SOD 3,000 MG in 0.9 % SODIUM CHLORIDE 100 ML IV SCH (20:24)
[2021-01-27] MEDS ORDERED: VENLAFAXINE HCL XR 150 MG CAPXR PO SCH (21:00)
[2021-01-27] MEDS ORDERED: DIVALPROEX DELAY RELEASE 500 MG TAB PO SCH (21:00)
[2021-01-27] MEDS: GABAPENTIN 300 MG CAP PO SCH (21:05)
[2021-01-27] MEDS: oxyCODONE/ACETAMINOPHEN 5mg/325mg TAB PO PRN (21:08)
[2021-01-28] MEDS: AMPICILLIN/SULBACTAM SOD 3,000 MG in 0.9 % SODIUM CHLORIDE 100 ML IV SCH ×2 (01:28→08:32)
[2021-01-28] MEDS: oxyCODONE/ACETAMINOPHEN 5mg/325mg TAB PO PRN ×2 (01:28→05:33)
[2021-01-28] MEDS ORDERED: COUGH DROP (SUGAR FREE) LOZ 24 LOZ/1 BOX BUCCAL ONE (01:32)
[2021-01-28] MEDS: HYDROmorphone INJ 1 MG/ML SYRINGE IV PRN ×2 (01:35→08:32)
[2021-01-28 05:46] LABS: Basophils # (auto) 0.01 K/uL (0-0.2); Basophils % (auto) 0.1 %; Eosinophils # (auto) 0.01 K/uL (0-0.5); Eosinophils % (auto) 0.1 %; Hematocrit (blood only) 40.2 % (37-47); Hemoglobin 12.7 g/dL (12.0-16.0); Immature Granulocytes # (auto) 0.01 K/uL (0.00-0.02); Immature Granulocytes % (auto) 0.1 %; Lymphocytes # (auto) 3.65 K/uL (1.2-3.4); Lymphocytes % (auto) 35.9 %; Mean Corpuscular Hemoglobin 30.6 pg (25-34); Mean Corpuscular Hgb Conc 31.6 g/dL (32-36); Mean Corpuscular Volume 96.9 fL (80-100); Mean Platelet Volume 11.1 fL (7.4-10.4); Monocytes # (auto) 0.82 K/uL (0.11-0.59); Monocytes % (auto) 8.1 %; Neutrophils # (auto) 5.66 K/uL (1.4-6.5); Neutrophils % (auto) 55.7 %; Platelet Count 199 K/uL (130-400); RDW Coefficient of Variation 13.6 % (11.5-14.5); RDW Standard Deviation 48.6 fL (36.4-46.3); Red Blood Count 4.15 M/uL (4.2-5.4); White Blood Count 10.16 K/uL (4.8-10.8)
--- NOTE | 2021-01-28 06:46 | Anesthesiology Progress Note ---
Date of Service January 28, 2021 Anesthesia Post Procedure Vital Signs Vital Signs: Temp Pulse Pulse Pulse Pulse Resp BP 01/28/21 02:19 98.1 F 71 16 01/27/21 22:09 98.1 F 82 16 01/27/21 20:58 97.5 F L 70 18 01/27/21 20:05 97.7 F 87 16 01/27/21 19:30 97.9 F 78 20 01/27/21 19:10 75 16 01/27/21 19:00 81 20 01/27/21 18:50 81 21 01/27/21 18:40 81 21 01/27/21 18:30 91 H 14 01/27/21 18:20 98.2 F 87 16 01/27/21 15:00 68 20 01/27/21 13:15 97.9 F 92 H 18 110/74 BP Pulse Ox 01/28/21 02:19 94/60 L 92 01/27/21 22:09 93/60 L 94 01/27/21 20:58 110/76 95 01/27/21 20:05 118/76 98 01/27/21 19:30 123/83 97 01/27/21 19:10 125/75 98 01/27/21 19:00 116/79 98 01/27/21 18:50 129/67 97 01/27/21 18:40 119/83 98 01/27/21 18:30 125/73 94 01/27/21 18:20 135/100 95 01/27/21 15:00 123/82 97 01/27/21 13:15 97 Pain Intensity Right Breast: Pain Intensity: 6 Transfer of Care Handoff Completed per policy Notes Mental Status: alert / awake / arousable and participated in evaluation Patient Amnestic to Procedure: Yes Nausea / Vomiting: adequately controlled Pain: adequately controlled Airway Patency, RR, SpO2: stable & adequate BP & HR: stable & adequate Hydration State: stable & adequate Anesthetic Complications: no major complications apparent and Pt Satisfied with anesthetic care
[2021-01-28] MEDS: GABAPENTIN 300 MG CAP PO SCH (08:33)
[2021-01-28] MEDS ORDERED: FOLIC ACID 400 MCG TAB PO SCH (09:00)
[2021-01-28] MEDS ORDERED: PHENTERMINE 30 MG PO SCH (09:00)
--- NOTE | 2021-01-28 11:02 | Surgery Progress Note ---
Date of Service F/U S/P I/D right breast abscess, POD 1 doing better, less pain, no fever, wound culture G+ Cocci, January 28, 2021 Assessment & Plan (1) Abscess of right breast: pt is a 30 year-old female who presents to ER with 5 days history right breast pain, IMP: right breast abscess Plan, I recommend to do I/D right breast abscess , D/W benefits, risks and alternatives of the surgery, the risks - infection, bleeding, recurrence, scar, pt understood, she agrees with surgery, i answered all questions, pre-op antibiotic, 01/28/2021 10: 59AM, S/P I/D right breast abscess, POD 1 doing better, pt wants to go home, the post-op care instruction was given, pt will F/U [facility] wound care center for packing change on 01/29/2021,nurse station will schedule her wound care appointment F/U az 1-2 weeks, Admission and Anticipated Discharge Date Admission Date: January 27, 2021 Physical Exam Constitutional: WD/WN, vitals as above well developed and well nourished Eyes: PERRL, conjunctivae normal, anicteric sclerae ENMT: external ear and nose normal, oropharynx normal Neck: trachea midline, no thyromegaly Respiratory: normal respiratory effort, lungs clear to auscultation normal respiratory effort Cardiovascular: RRR, no murmur, no edema Rate/Rhythm: regular rate and regular rhythm Chest (Breasts): Additional Comments: the wound is dry, less redness, Gastrointestinal (Abdomen): normal bowel sounds, soft, nontender, no hepa tosplenomegaly Musculoskeletal: no cyanosis or clubbing, extremities motor strength 5/5 Skin: no rashes, warm and dry Neurologic: awake Psychiatric: Orientation: alert and oriented x 3 Results & Data ([facility]) Vital Signs (Past 12 Hours) Vital Signs Temp Pulse Resp BP Pulse Ox 01/28/21 07:42 36.7 C 71 18 98/63 L 92 01/28/21 02:19 36.7 C 71 16 94/60 L 92 Laboratory Results Abnormal lab results 01/27/21 01/27/21 01/28/21 Range/Units 13:55 13:55 05:18 RBC 4.15 L (4.2-5.4) M/uL MCHC 31.6 L (32-36) g/dL RDW Std Deviation 48.6 H (36.4-46.3) fL MPV 11.0 H 11.1 H (7.4-10.4) fL Lymph # (Auto) 3.65 H (1.2-3.4) K/uL [place] # (Auto) 0.75 H 0.82 H (0.11-0.59) K/uL Chloride 110 H (98-107) mmol/L AST 8 L (15-37) U/L Albumin 3.1 L (3.4-5.0) gm/dl Albumin/Globulin Ratio 0.8 L (0.9-2)
--- NOTE | 2021-01-28 12:09 | Discharge Summary (DS) ---
DATE OF ADMISSION: 01/27/2021. DATE OF DISCHARGE: 01/28/2021. ADMISSION DIAGNOSIS: Right breast abscess. DISCHARGE DIAGNOSIS: Right breast abscess. OPERATION: Incision and drainage of a right breast abscess. SURGEON: Briana Churchill MD. DETAIL OF DISCHARGE SUMMARY: This is a 30-year-old female who presented to the ED with a 4-day histor y of right breast pain. The patient had ultrasound diagnosis of right breast abscess. We took the p atient to the OR, we did an incision and drainage of right breast abscess with packing. The patient tolerated the procedure well and after the procedure, the patient transferred to recovery room and la ter on transfer to regular floor. Patient doing fine. Patient is stay in the hospital overnight and the patient was feeling much better today, less pain, no fever and the white count is 10,000. PHYSICAL EXAMINATION: VITAL SIGNS: Temperature is 36.7, respiratory rate 18, heart rate of 71, blood pressure 98/63, O2 sa turation 92% on room air. GENERAL: Alert, awake, oriented x3. HEENT: With normal limitation. NEUROLOGIC: Intact. NECK: No JVD. CHEST: Bilateral lung sounds clear. HEART: Normal S1 and S2. No murmur. On right side of the breast the incision is dry. No significa nt drainage, less redness and less tenderness. ABDOMEN: Soft, no tenderness, no distention. Bowel sounds positive. EXTREMITIES: No edema. The patient wanted to go home today. We gave the patient postop care instruction. The patient will f ollow up in the hospital wound care center and I will follow the patient in 1-2 weeks. Also, I gave the patient 10 days of Bactrim. Job ID: [id number]
== END 2021-01-28 11:32 | disposition home or self-care (01) ==
LOC: ED 13:13 → 3E 17:12 → OR 17:12